=== PATIENT | female | born 2000 | race Two or more races ===

== ENCOUNTER 2023-03-19 15:31 | Emergency (ER) | payer MEDICAID ==
[~2023-03-19] VITALS: Ht 167.6 cm; Wt 50.0 kg
[2023-03-19 16:15] VITALS: BP 109/75; PULSE 84; RESP 18; O2SAT 98
[2023-03-19] MEDS ORDERED: ACETAMINOPHEN 500 MG TAB PO ONE (16:30)
[2023-03-19] MEDS ORDERED: ONDANSETRON ODT 4 MG TAB PO ONE (16:30)
[2023-03-19 16:32] VITALS: TEMP 97.7
[2023-03-19] MEDS ORDERED: ZOFR4T PO (16:43)
[2023-03-19] MEDS ORDERED: ACET-1080 PO (16:43)
== END 2023-03-19 16:39 | disposition left against medical advice (07) ==
LOC: ER 15:31
DX: O21.8 Other vomiting complicating pregnancy (principal); G43.009 Migraine without aura, not intractable, without status migrainosus; Z3A.28 28 weeks gestation of pregnancy
CPT/HCPCS: 99283; Q0162